=== PATIENT | male | born 1940 | race Caucasian/White ===

== ENCOUNTER 2016-04-24 13:23 | Inpatient (IN) | payer BC, MEDICARE ==
[~2016-04-24] VITALS: Ht 177.8 cm; Wt 65.9 kg
[2016-04-24] VITALS (8 sets, daily range): BP systolic 101–115; BP diastolic 58–71; PULSE 96–130; RESP 18–20; TEMP 97.2–99.6; O2SAT 92–95
[~2016-04-24 13:23] MED LIST: ASPI1TAB69 PO; ATOR20TA15 PO; CARV3.12 PO; FERR325T PO; LEFL1TAB3 PO; LISI2.5T3 PO; PRED5TAB PO; SULF500T39 PO; TOPI1TAB97 PO; WARF-20 PO; WARF-23 PO
[2016-04-24] MEDS ORDERED: SODIUM CHLOR 0.9% 1000 ML INJ 1,000 ML IV ONE (14:15)
[2016-04-24 14:28] LABS: AUTOMATED NEUTROPHIL # 10.5 TH/MM3 (1.8-7.7); BASOPHIL % 0.2 % (0.0-2.0); EOSINOPHIL % 0.1 % (0.0-4.0); LYMPH % 3.4 % (9.0-44.0); LYMPHOCYTE # 0.4 TH/MM3 (1.0-4.8); MEAN CORPUSCULAR HEMOGLOBIN 33.2 PG (27.0-34.0); MEAN CORPUSCULAR HGB CONC 33.9 % (32.0-36.0); MONO % 8.1 % (0.0-8.0); NEUT % 88.2 % (16.0-70.0); PLATELET COUNT 488 TH/MM3 (150-450); RED BLOOD COUNT 2.76 MIL/MM3 (4.50-5.90); RED CELL DISTRIBUTION WIDTH 14.2 % (11.6-17.2); WHITE BLOOD COUNT 11.9 TH/MM3 (4.0-11.0)
[2016-04-24 14:29] LABS: HEMO FLAGS DIFF FINAL
[2016-04-24 14:36] LABS: CHLORIDE 101 MEQ/L (98-107); POTASSIUM 3.1 MEQ/L (3.5-5.1); SODIUM (NA) 135 MEQ/L (136-145)
--- NOTE | 2016-04-24 14:36 | RADHPO ---
EXAM DATE/TIME: 04/24/2016 14:20 [place] COMPARISON: No previous studies available for comparison. INDICATIONS : Fever, cough,short of breath MEDICAL HISTORY : Chronic obstructive pulmonary disease. SURGICAL HISTORY : None. ENCOUNTER: Initial ACUITY: 1 week PAIN SCORE: 0/10 LOCATION: Bilateral chest FINDINGS: There is a patchy infiltrate in the right costophrenic angle suggestive of pneumonia. There is coarse jennie of the lung markings bilaterally suggestive of bilateral chronic interstitial lung disease. Ther e are no prior studies for comparison. No definite pleural effusions are seen. The heart size is with in normal limits. There is pleural thickening in both apices. The bony structures are grossly intact. CONCLUSION: 1. Patchy infiltrate in the right costophrenic angle suggestive of pneumonia. 2. Increased interstitial markings bilaterally suggestive of chronic interstitial disease. Mario Alberto Stanley MD on April 24, 2016 at 14:33 Board Certified Radiologist. This report was verified electronically.
--- NOTE | 2016-04-24 14:37 | PD ---
HPI Chief Complaint: General Weakness Time Seen by Provider: 13:53 Travel History International Travel<30 days: No Contact w/Intl Traveler<30days: No Traveled to known affect area: No History of Present Illness HPI 75-year-old male with history of COPD, CAD, CVA on Coumadin here with complaint of generalized weakness. Patient states that for the last month he has been ill. Describes flulike symptoms with cough, cold, chest congestion. Intractable diarrhea, states stools have been loose, 3-4 times daily. His stools are chronically black in color since starting on iron supplementation in September 2015. He has not seen any blood per stool and denies history of GI bleeding. Patient notes history of anemia, which is why he is on iron supplementation, baseline hemoglobin approximately 11 per patient. Patient has been getting progressively work with increasing malaise, anorexia, and resultant fall today due to weakness. No focal weakness. He denies any abdominal pain, nausea or vomiting. 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) Endocrine: No GERD: No Genitourinary: Yes (BPH) Hepatitis: No Hiatal Hernia: No Hypertension: Yes Immune Disorder: Yes (RA) Kidney Stones: No Musculoskeletal: No Neurologic: Yes (TIA 07/29/15) Psychiatric: No Reproductive: No Respiratory: Yes (ASTHMA, COPD) Immunizations Current: Yes Myocardial Infarction: Yes (x2 in 2008) Radiation Therapy: No Renal Failure: No Sickle Cell Disease: No Sleep Apnea: No Thyroid Disease: No Ulcer: No Influenza Vaccination: Yes Past Surgical History Abdominal Surgery: No AICD: No Arteriovenous Shunt: No Cardiac Surgery: Yes (STENTS X4) Coronary Stent: Yes (x 4 in 2008) Ear Surgery: No Endocrine Surgery: No Eye Surgery: No Genitourinary Surgery: No Gynecologic Surgery: No Insulin Pump: No Joint Replacement: No Oral Surgery: No Pacemaker: No Thoracic Surgery: No Other Surgery: Yes (left knee arthroscopy) Social History Alcohol Use: Yes (TWO BEERS PER DAY) Tobacco Use: No (quit 22 yrs ago smoked 1 ppd for 32 yrs) Substance Use: No Allergies-Medications (Allergen,Severity, Reaction): Coded Allergies: Bee Sting (Verified Allergy, Severe, Swelling, 04/24/16) neck swelling and hives Blueberry (Verified Allergy, Severe, Swelling, 04/24/16) lips Reported Meds & Prescriptions Reported Meds & Active Scripts Active Warfarin 5 Mg Tab 5 Mg PO DAILY Carvedilol 3.125 Mg Tab 3.125 Mg PO BID Reported Warfarin 4 Mg Tab 4 Mg PO DAILY Topiramate 25 Mg Tab 25 Mg PO BID Sulfazine (Sulfasalazine) 500 Mg Tab 1,000 Mg PO BID Prednisone 5 Mg Tab 5 Mg PO DAILY Leflunomide 20 Mg Tab 20 Mg PO DAILY Ferrous Sulfate 325 Mg Tab 325 Mg PO DAILY Atorvastatin (Atorvastatin Calcium) 20 Mg Tab 20 Mg PO HS Aspirin 81 Mg Tabdr 81 Mg PO HS Review of Systems Except as stated in HPI: all other systems reviewed are Neg Physical Exam Narrative GENERAL: Chronically ill-appearing thin male in no acute distress SKIN: Warm and dry. Pale, pale conjunctiva HEAD: Atraumatic. Normocephalic. EYES: Pupils equal and round. No scleral icterus. No injection or drainage. ENT: No nasal bleeding or discharge. Mucous membranes pink and moist. NECK: Supple CARDIOVASCULAR: Tachycardic with heart rate in the 130s. No murmur appreciated. RESPIRATORY: No accessory muscle use. Clear to auscultation. Breath sounds equal bilaterally. GASTROINTESTINAL: Abdomen soft, non-tender, nondistended. RECTAL: Normal digital rectal examination. Hemoccult positive. MUSCULOSKELETAL: No obvious deformities. No clubbing. No cyanosis. No edema. NEUROLOGICAL: Awake and alert. Motor grossly within normal limits. Normal speech. PSYCHIATRIC: Appropriate mood and affect; insight and judgment normal. Data Data Last Documented VS Vital Signs Date Time Temp Pulse Resp B/P Pulse Ox O2 Delivery O2 Flow Rate FiO2 04/24/16 14:12 94 Room Air 04/24/16 14:06 120 18 112/65 04/24/16 13:31 99.6 Orders Electrocardiogram (04/24/16 14:03) Complete Blood Count With Diff (04/24/16 14:03) Comprehensive Metabolic Panel (04/24/16 14:03) Prothrombin Time / Inr (Pt) (04/24/16 14:03) Act Partial Throm Time (Ptt) (04/24/16 14:03) Lactic Acid Sepsis Protocol (04/24/16 14:03) Magnesium (Mg) (04/24/16 14:03) Lipase (04/24/16 14:03) Troponin I (04/24/16 14:03) Urinalysis - C+S If Indicated (04/24/16 14:03) Influenzae A/B Antigen (04/24/16 14:03) Blood Culture (04/24/16 14:03) Chest, Single Ap (04/24/16 14:03) Ecg Monitoring (04/24/16 14:03) Iv Access Insert/Monitor (04/24/16 14:03) Oximetry (04/24/16 14:03) Sodium Chlor 0.9% 1000 Ml Inj (Ns 1000 M (04/24/16 14:15) Ammonia (04/24/16 14:03) Type And Screen (04/24/16 14:03) Stool Ova And Parasite Screen (04/24/16 14:37) Enteric Path (Stool) (04/24/16 14:37) C Diff Toxin Pcr (04/24/16 14:37) Piperacil-Tazo 4.5 Gm Premix (Zosyn 4.5 (04/24/16 14:38) Phytonadione Inj (Vitamin K Inj) (04/24/16 15:15) Potassium Chloride (Kcl) (04/24/16 15:45) Admit Order (Ed Use Only) (04/24/16 15:46) Labs Laboratory Tests Test 04/24/16 14:15 White Blood Count 11.9 TH/MM3 Red Blood Count 2.76 MIL/MM3 Hemoglobin 9.1 GM/DL Hematocrit 27.0 % Mean Corpuscular Volume 98.0 FL Mean Corpuscular Hemoglobin 33.2 PG Mean Corpuscular Hemoglobin 33.9 % Concent Red Cell Distribution Width 14.2 % Platelet Count 488 TH/MM3 Mean Platelet Volume 6.6 FL Neutrophils (%) (Auto) 88.2 % Lymphocytes (%) (Auto) 3.4 % Monocytes (%) (Auto) 8.1 % Eosinophils (%) (Auto) 0.1 % Basophils (%) (Auto) 0.2 % Neutrophils # (Auto) 10.5 TH/MM3 Lymphocytes # (Auto) 0.4 TH/MM3 Monocytes # (Auto) 1.0 TH/MM3 Eosinophils # (Auto) 0.0 TH/MM3 Basophils # (Auto) 0.0 TH/MM3 CBC Comment DIFF FINAL Differential Comment Prothrombin Time 104.4 SEC Prothromb Time International 8.6 RATIO Ratio Activated Partial 77.3 SEC Thromboplast Time Sodium Level 135 MEQ/L Potassium Level 3.1 MEQ/L Chloride Level 101 MEQ/L Carbon Dioxide Level 21.4 MEQ/L Anion Gap 13 MEQ/L Blood Urea Nitrogen 13 MG/DL Creatinine 0.86 MG/DL Estimat Glomerular Filtration 87 ML/MIN Rate Random Glucose 150 MG/DL Lactic Acid Level 2.3 mmol/L Calcium Level 8.5 MG/DL Magnesium Level 1.9 MG/DL Total Bilirubin 0.4 MG/DL Aspartate Amino Transf 18 U/L (AST/SGOT) Alanine Aminotransferase 12 U/L (ALT/SGPT) Alkaline Phosphatase 89 U/L Ammonia LESS THAN 10 MCMOL/L Troponin I LESS THAN 0.02 NG/ML Total Protein 7.3 GM/DL Albumin 1.9 GM/DL Lipase 123 U/L [facility] Medical Decision Making Medical Screen Exam Complete: Yes Emergency Medical Condition: Yes Medical Record Reviewed: Yes Differential Diagnosis 75-year-old male with history of COPD, CAD, CVA on Coumadin here with complaint of generalized weakness 1 month, cough, fevers chills, diarrhea. Differential includes viral syndrome, influenza, COPD exacerbation, pneumonia, symptomatic anemia, GI bleed, electrolyte abnormality, renal dysfunction, C. difficile or other enteric pathogenic diarrhea, ACS, new onset failure. Narrative Course Patient placed on monitor, IV established and blood obtained. Given 1 L normal saline bolus. Twelve-lead EKG shows sinus tachycardia, rate [address] abnormalities, normal intervals. Portal chest x-ray obtained showing right basilar pneumonia. Patient treated with Zosyn IV. CBC, CMP, lipase, magnesium, troponin, coags, lactic acid, ammonia, type and screen, urinalysis, blood cultures, influenza obtained and notable for WBC 11.9, hemoglobin 9.1, platelets 488. INR supratherapeutic at 8.6. Patient given 10 mg vitamin K IV. Potassium slightly low at 3.1. Replaced with 40 mEq orally. Lactate elevated at 2.3. Stool studies for ova and parasites, enteric pathogens and C. difficile ordered as well. Results remain pending at the time this dictation. Patient has infectious source but at this time only meets 1 Sirs criteria with heart rate. Critical Care Narrative Aggregate critical care time was 35 minutes. Time to perform other separately billable procedures was not included in the critical care time. My time did not include minutes spent treating any other patients simultaneously or on activities that did not directly contribute to the patient's treatment. The services I provided to this patient were to treat and/or prevent clinically significant deterioration that could result in: Cardiopulmonary decompensation, hemorrhage, , disability I provided critical care services requiring my management, as noted below: Chart data review, documentation time, medication orders and management, vital sign assessments/reviewing monitor data, ordering and reviewing lab tests, ordering and interpreting/reviewing x-rays and diagnostic studies, care of the patient and discussion of the patient with the admitting physicians. HemaPrompt Point of Care Internal Pos. & Neg. Controls: Passed Fecal Specimen Occult Blood: Positive Sepsis Criteria SIRS Criteria (2 or more): Heart rate over 90 Sepsis Criteria (SIRS+source): Infect source susp/known Severe Sepsis (+one): Lactate >2 Diagnosis Primary Impression: Pneumonia Qualified Code: J18.1 - Pneumonia of right lower lobe due to infectious organism Additional Impressions: Tachycardia Coumadin toxicity Qualified Code: T45.511A - Coumadin toxicity, accidental or unintentional, initial encounter Anemia Qualified Code: D64.9 - Anemia, unspecified type Hypokalemia Lactic acidosis Admitting Information Admitting Physician Requests: Admit Enedelia Navarro MD Apr 24, 2016 14:37
[2016-04-24] MEDS ORDERED: PIPERACIL-TAZO 4.5 GM PREMIX 100 ML IV STA (14:38)
[2016-04-24 14:40] LABS: ANION GAP 13 MEQ/L (5-15); BICARBONATE 21.4 MEQ/L (21.0-32.0); BLOOD UREA NITROGEN 13 MG/DL (7-18); MAGNESIUM 1.9 MG/DL (1.5-2.5)
[2016-04-24 14:43] LABS: ALT (GPT) 12 U/L (12-78); AST (GOT) 18 U/L (15-37); GLOMERULAR FILTRATION RATE 87 ML/MIN (>89)
[2016-04-24 14:45] LABS: TOTAL BILIRUBIN ADULT 0.4 MG/DL (0.2-1.0)
[2016-04-24 14:46] LABS: ALKALINE PHOSPHATASE 89 U/L (45-117)
[2016-04-24 14:57] LABS: APTT (PATIENT) 77.3 SEC (24.3-30.1); PROTHROMBIN TIME - PATIENT 104.4 SEC (9.8-11.6)
[2016-04-24 15:01] LABS: INTERNATIONAL NORMALIZED RATIO 8.6 RATIO
[2016-04-24] MEDS ORDERED: PHYTONADIONE INJ 10 MG in SODIUM CHLORIDE 0.9% INJ 50 ML IV ONE (15:15)
[2016-04-24] MEDS ORDERED: POTASSIUM CHLORIDE 20 MEQ CONTROLLED RELEASE TAB PO ONE (15:45)
[2016-04-24] MEDS ORDERED: SODIUM CHLORIDE 0.9% FLUSH 5 ML FLUSH FLUSH PRN (16:15)
[2016-04-24 16:21] LABS: LACTIC ACID GHOST NOT REPORTABLE
[2016-04-24] MEDS ORDERED: ONDANSETRON HCL 4 MG/2 ML VIAL IV PRN (17:00)
[2016-04-24] MEDS ORDERED: guaiFENesin/DEXTROMETHORPHAN 200 MG/20 MG/10 ML CUP PO PRN (17:00)
[2016-04-24] MEDS ORDERED: RESP: ALBUTEROL 2.5 MG/IPRATROPIUM 0.5 MG NEB (PRN) INH (17:00)
[2016-04-24] MEDS ORDERED: ACETAMINOPHEN 325 MG TAB PO PRN (17:00)
[2016-04-24] MEDS ORDERED: SODIUM CHLORIDE 0.9% FLUSH 5 ML FLUSH IV FLUSH PRN (17:00)
[2016-04-24] MEDS: AZITHROMYCIN INJ 500 MG in SODIUM CHLOR 0.9% 250 ML INJ 250 ML IV SCH (17:32)
[2016-04-24] MEDS: SODIUM CHLOR 0.9% 1000 ML INJ 1,000 ML IV SCH (17:45)
--- NOTE | 2016-04-24 17:52 | HHI.HP ---
cc: Alma Rosa Naik MD [facility]ician Alma Rosa Naik MD Admission Diagnosis right basilar pneumonia, supratherapeutic INR Diagnoses: (1) Pneumonia Diagnosis: Principal (2) Lactic acidosis Diagnosis: Principal (3) Diarrhea Diagnosis: Principal (4) Generalized weakness Diagnosis: Principal (5) Coumadin toxicity Diagnosis: Principal (6) Hypokalemia Diagnosis: Principal (7) Anemia Diagnosis: Secondary Chief Complaint: weakness, cough, diarrhea Travel History International Travel<30 Days: No Contact w/Intl Traveler <30 Da: No Traveled to Known Affected Are: No History of Present Illness 75-year-old male with history of CVA on Coumadin, CAD, RA, COPD and asthma, and chronic headaches presents with complaint of generalized weakness and fall. The patient states that he had diarrhea and was taking off his pants in the bathroom and slipped and the diarrhea. He states he was so weak he could not get up. He denies any head injury. He states a couple days after he went to a dinner alliance party and one of his friends was sick with respiratory symptoms and he states he had a runny nose, congestion, and cough for one month. He had states one week ago Monday he went to the friend's house again and she was ill and he again became sick with a runny nose, congestion, and productive cough. Admits to shortness of breath but denies any chest pain including pleuritic pain. Denies any fevers or chills. He states he sometimes produces yellow sputum but it is mostly clear. He admits to anorexia. Admits to chronic loose stools since July of last year after he started Coumadin, but he states for the last couple days he has had actual diarrhea, 3-4 episodes per day. Patient's INR was noted to be supratherapeutic, but he denies any hemoptysis, hematuria, or hematochezia. He has chronically dark stools due to iron use. Denies any n/v, or abdominal pain. Review of Systems Constitutional: DENIES: Fever, Chills Eyes: DENIES: Blurred vision Ears, nose, mouth, throat: COMPLAINS OF: Running Nose, DENIES: Throat pain, Ear Pain Respiratory: COMPLAINS OF: Cough, Shortness of breath Cardiovascular: DENIES: Chest pain Gastrointestinal: COMPLAINS OF: Black stools (from iron use, chronic), Diarrhea , Anorexia, DENIES: Abdominal pain, Bloody stools, Nausea, Vomiting Genitourinary: DENIES: Urinary frequency, Hematuria, Dysuria Integumentary: DENIES: Rash Neurologic: DENIES: Headache Other + Generalized weakness ROS x 10 negative unless otherwise indicated. Past Family Social History Past Medical History NC 2008 The patient states he had a couple of TIAs during cardiac rehabilitation between months of stenting. CVA 07/29/15 Admitted for Vtach in 09/2015. BPH RA Chronic anemia and thrombocytosis COPD, asthma Chronic HAs Past Surgical History Coronary artery stenting 2008: 2 stents placed in May and 2 stents placed in September of that year. Left knee arthroscopy in 1992 Prostate resection 11/2015 Reported Medications Warfarin 5 Mg Tab 5 Mg PO M, W, F Warfarin 4 Mg Tab 4 Mg PO T, R, S, Sun Carvedilol 3.125 Mg Tab 3.125 Mg PO BID Topiramate 25 Mg Tab 25 Mg PO BID Sulfazine (Sulfasalazine) 500 Mg Tab 1,000 Mg PO BID Prednisone 5 Mg Tab 5 Mg PO DAILY Leflunomide 20 Mg Tab 20 Mg PO DAILY Ferrous Sulfate 325 Mg Tab 325 Mg PO DAILY Atorvastatin (Atorvastatin Calcium) 20 Mg Tab 20 Mg PO HS Aspirin 81 Mg Tabdr 81 Mg PO HS Allergies: Coded Allergies: Bee Sting (Verified Allergy, Severe, Swelling, 04/24/16) neck swelling and hives Blueberry (Verified Allergy, Severe, Swelling, 04/24/16) lips Family History Mother: of lung cancer Father: Quadruple bypass at age 65; had platelet antibodies and would have severe nosebleeds; of Leukemia. Two of his brothers had NC in their mid 50's. One of these brothers also had a stroke. Social History Quit smoking cigarettes 22 years ago. Smoked one pack per day prior to this for 32 years. Drinks 2 beers daily, but has not been drinking recently. Denies illicit drug use. Smoked marijuana when he was younger per EMR. Physical Exam Vital Signs Vital Signs Date Time Temp Pulse Resp B/P Pulse Ox O2 Delivery O2 Flow Rate FiO2 04/24/16 16:12 97 18 110/58 95 Room Air 04/24/16 14:12 94 Room Air 04/24/16 14:06 120 18 112/65 94 Room Air 04/24/16 14:06 16 95 Room Air 04/24/16 13:31 99.6 130 18 107/65 92 Physical Exam GENERAL: This is a thin well-developed patient, in no apparent distress. SKIN: Pale but no rashes, ecchymoses or lesions. Warm and dry. HEAD: Atraumatic. Normocephalic. EYES: No scleral icterus. No injection or drainage. ENT: Mildly hard of hearing. Throat without erythema, tonsillar hypertrophy or exudate. Uvula midline. Airway patent. Tongue mildly dry. NECK: Trachea midline. CARDIOVASCULAR: Tachycardic rate with regular rhythm. No murmurs, gallops, or rubs. RESPIRATORY: Clear to auscultation. Breath sounds equal bilaterally. No wheezes , rales, or rhonchi. GASTROINTESTINAL: Abdomen soft, non-tender, nondistended. MUSCULOSKELETAL: No lower extremity edema bilaterally. NEUROLOGICAL: Awake and alert. No obvious cranial nerve deficits. Motor grossly within normal limits. Five out of 5 muscle strength in bilateral arms and legs. Normal speech. Laboratory Laboratory Tests Test 04/24/16 14:15 White Blood Count 11.9 Red Blood Count 2.76 Hemoglobin 9.1 Hematocrit 27.0 Mean Corpuscular Volume 98.0 Mean Corpuscular Hemoglobin 33.2 Mean Corpuscular Hemoglobin 33.9 Concent Red Cell Distribution Width 14.2 Platelet Count 488 Mean Platelet Volume 6.6 Neutrophils (%) (Auto) 88.2 Lymphocytes (%) (Auto) 3.4 Monocytes (%) (Auto) 8.1 Eosinophils (%) (Auto) 0.1 Basophils (%) (Auto) 0.2 Neutrophils # (Auto) 10.5 Lymphocytes # (Auto) 0.4 Monocytes # (Auto) 1.0 Eosinophils # (Auto) 0.0 Basophils # (Auto) 0.0 CBC Comment DIFF FINAL Differential Comment Prothrombin Time 104.4 Prothromb Time International 8.6 Ratio Activated Partial 77.3 Thromboplast Time Sodium Level 135 Potassium Level 3.1 Chloride Level 101 Carbon Dioxide Level 21.4 Anion Gap 13 Blood Urea Nitrogen 13 Creatinine 0.86 Estimat Glomerular Filtration 87 Rate Random Glucose 150 Lactic Acid Level 2.3 Calcium Level 8.5 Magnesium Level 1.9 Total Bilirubin 0.4 Aspartate Amino Transf 18 (AST/SGOT) Alanine Aminotransferase 12 (ALT/SGPT) Alkaline Phosphatase 89 Ammonia LESS THAN 10 Troponin I LESS THAN 0.02 Total Protein 7.3 Albumin 1.9 Lipase 123 Blood Type O POSITIVE Date/Time Procedure Status Source Growth 04/24/16 14:15 Influenza Types A,B Antigen (JAJA) - Final Complete Nasal Washing NEGATIVE FOR FLU A AND B ANTIGEN.... 04/24/16 14:15 Aerobic Blood Culture Received Blood Peripheral Pending 04/24/16 14:15 Anaerobic Blood Culture Received Blood Peripheral Pending Result Diagram: 04/24/16 1415 04/24/16 1415 Imaging Last Impressions Chest X-Ray 04/24/16 1403 Signed Impressions: Service Date/Time: Sunday, April 24, 2016 14:20 - CONCLUSION: 1. Patchy infiltrate in the right costophrenic angle suggestive of pneumonia. 2. Increased interstitial markings bilaterally suggestive of chronic interstitial disease. Mario Alberto Stanley MD Assessment and Plan Assessment and Plan 75-year-old male with: Pneumonia: Chest x-ray personally interpreted with patchy infiltrate in the right costophrenic angle, blunting of the R CPA. Increased interstitial markings bilaterally suggestive of chronic interstitial disease. Influenza test negative. Mild leukocytosis of 11.9. Patient is tachycardiac in the 90s, 130 on arrival, and lactic acid elevated at 2.3-->0.9, but patient only has one SIRS criteria. Patient will be treated as a HCAP as he is on immunosuppressive medication for RA and is at risk for pseudomonas. -Zosyn 4.5 g every 6 hours and Azithromycin 500 mg IV q24h -Guaifenesin/dextromethorphan prn cough -Sputum culture -Legionella and pneumococcal urinary antigen tests -Duonebs as needed -Blood cultures pending Diarrhea: Patient has chronic loose stools, but states he has had diarrhea over the last couple of days. Tachycardic. -C.diff and stool studies ordered -IV NS @ 100 mL/hr Generalized weakness: Attributed to pneumonia and diarrhea. Had fall today. EKG personally interpreted with demand pacing, sinus tach 107, and nonspecific lateral ST-T changes. Troponin < 0.02. -PT eval and treat Supratherapeutic INR: INR 8.6. Patient on Coumadin for previous stroke. Patient does not report any bleeding. Hemoccult is positive, but is likely a false positive as patient has chronic dark stools from iron supplementation. -Patient received 10 mg IV vitamin K in ED -Hold Coumadin -Monitor INR daily Hypokalemia: Mild 3.1. Mg 1.9. -Patient received 40 mEq by mouth KCl in ED. -Monitor and replete as needed. Anemia: Hemoglobin 9.1. -Patient has chronic anemia. He was evaluated by hematology in July of last year indicating microcytic/mixed anemia associated with RA, RF positive, and also iron deficiency. -Continue iron -Hold aspirin for now -Monitor hemoglobin and transfuse if active bleeding or hemoglobin < 7.0. Chronic medical problems include RA, h/o CVA and TIAs, CAD, chronic HAs, and asthma/COPD: Continue home medications unless otherwise indicated below. -Hold aspirin and warfarin for now -Hold DMARDs. -Continue prednisone as patient is only on 5 mg daily and may assist with pneumonia treatment DVT prevention: TEDs/SCDs. Patient supratherapeutic on coumadin. Discussed Condition With patient, Dr. Wallace Physician Certification 2 Midnight Certification Type: Admission for Inpatient Services Order for Inpatient Services The services are ordered in accordance with Medicare regulations or non- Medicare payer requirements, as applicable. In the case of services not specified as inpatient-only, they are appropriately provided as inpatient services in accordance with the 2-midnight benchmark. Estimated LOS (days): 2 days is the estimated time the patient will need to remain in the hospital, assuming treatment plan goals are met and no additional complications. Post-Hospital Plan: Home Problem Qualifiers (1) Pneumonia: Qualified Code: J18.1 - Pneumonia of right lower lobe due to infectious organism (2) Coumadin toxicity: Qualified Code: T45.511A - Coumadin toxicity, accidental or unintentional, initial encounter Chelsea Duncan Apr 24, 2016 17:48
--- NOTE | 2016-04-24 17:56 | EKG ---
Date Performed: 04/24/2016 Time Performed: 14:25:08 PTAGE: 75 years EKG: Sinus tachycardia Possible anterior infarct - age undetermined Lateral ST-T changes are non specific Low QRS voltages in limb leads Abnormal ECG PREVIOUS TRACING : 10/12/2015 23.01 No significant change from previous tracing noted. DOCTOR: Jagdish Ren Interpretating Date/Time 04/24/2016 17:55:03
[2016-04-24] MEDS: SODIUM CHLORIDE 0.9% FLUSH 5 ML FLUSH FLUSH SCH (21:00)
[2016-04-24] MEDS ORDERED: SODIUM CHLORIDE 0.9% FLUSH 5 ML FLUSH IV FLUSH SCH (21:00)
[2016-04-24] MEDS: PIPERACIL-TAZO 4.5 GM PREMIX 100 ML IV SCH (22:03)
[2016-04-24] MEDS: TOPIRAMATE 25 MG TAB PO SCH (22:03)
[2016-04-24] MEDS: ATORVASTATIN 20 MG TAB PO SCH (22:03)
[2016-04-24] MEDS: CARVEDILOL 3.125 MG TAB PO SCH (22:03)
[2016-04-24 22:28] LABS: BLOOD, URINE SMALL (NEG); GLUCOSE,URINE NEG (NEG); KETONE, URINE NEG (NEG); NITRITE,URINE NEG (NEG)
[2016-04-24 22:42] LABS: METHOD OF COLLECTION CLEAN CATCH; URINE COLOR YELLOW (YELLW/STRAW)
[2016-04-24 22:44] LABS: SQUAMOUS EPITHELIAL CELL URINE 0-5 /hpf (0-5)
[2016-04-24 22:45] LABS: COMMENT (UR) CULT NOT INDICATED; CULTURE IF INDICATED CULT NOT INDICATED
[2016-04-25] VITALS (8 sets, daily range): BP systolic 105–127; BP diastolic 60–74; PULSE 18–112; RESP 16–18; TEMP 96.4–99.7; O2SAT 91–94
[2016-04-25] MEDS: PIPERACIL-TAZO 4.5 GM PREMIX 100 ML IV SCH ×4 (02:52→20:03)
[2016-04-25] MEDS: SODIUM CHLOR 0.9% 1000 ML INJ 1,000 ML IV SCH (02:52)
[2016-04-25 05:54] LABS: BASOPHIL % 0.3 % (0.0-2.0); EOSINOPHIL # 0.1 TH/MM3 (0-0.4); EOSINOPHIL % 1.3 % (0.0-4.0); LYMPHOCYTE # 0.9 TH/MM3 (1.0-4.8); MEAN CELL VOLUME 98.4 FL (80.0-100.0); MEAN CORPUSCULAR HEMOGLOBIN 31.6 PG (27.0-34.0); MEAN CORPUSCULAR HGB CONC 32.1 % (32.0-36.0); MONO % 10.2 % (0.0-8.0); NEUT % 79.2 % (16.0-70.0); PLATELET COUNT 477 TH/MM3 (150-450); RED BLOOD COUNT 2.44 MIL/MM3 (4.50-5.90); RED CELL DISTRIBUTION WIDTH 14.5 % (11.6-17.2)
[2016-04-25 06:01] LABS: HEMO FLAGS DIFF FINAL
[2016-04-25 06:15] LABS: POTASSIUM 3.2 MEQ/L (3.5-5.1)
[2016-04-25 06:18] LABS: INTERNATIONAL NORMALIZED RATIO 1.1 RATIO; PROTHROMBIN TIME - PATIENT 12.7 SEC (9.8-11.6)
[2016-04-25 06:19] LABS: BICARBONATE 21.4 MEQ/L (21.0-32.0)
[2016-04-25] MEDS ORDERED: POTASSIUM CHLORIDE 20 MEQ CONTROLLED RELEASE TAB PO ONE (07:15)
[2016-04-25] MEDS: NS + KCL 20 MEQ INJ 1,000 ML IV SCH ×2 (08:20→20:01)
[2016-04-25] MEDS: TOPIRAMATE 25 MG TAB PO SCH ×2 (08:20→20:04)
[2016-04-25] MEDS: predniSONE 5 MG TAB PO SCH (08:20)
[2016-04-25] MEDS: CARVEDILOL 3.125 MG TAB PO SCH ×2 (08:20→20:04)
[2016-04-25] MEDS: FERROUS SULFATE 325 MG (65 MG ELEMENTAL IRON) TAB PO SCH (08:20)
[2016-04-25] MEDS: SODIUM CHLORIDE 0.9% FLUSH 5 ML FLUSH FLUSH SCH ×2 (08:21→20:01)
--- NOTE | 2016-04-25 14:06 | HHI.PR ---
Subjective Remarks Seen today in follow-up for pneumonia and weakness. With no further lightheadedness or dizziness. INR is 8.6-1.1. No events on telemetry this morning however he had some episodes of wide-complex tachycardia which were asymptomatic to the patient. Patient had some hypokalemia which has been replaced. Hemoglobin initially was 7.7 and repeat was 8.5. Patient notes no bleeding however nursing reports black stool (patient on iron supplementation. Hemoccult positive and emergency room) Objective Vitals Vital Signs Date Time Temp Pulse Resp B/P Pulse Ox O2 Delivery O2 Flow Rate FiO2 04/25/16 09:03 99.3 18 16 127/72 91 04/25/16 08:10 92 21 04/25/16 04:00 96.7 105 18 125/74 91 04/25/16 00:00 96.4 94 18 105/66 94 04/24/16 20:30 94 21 04/24/16 20:00 97.2 97 18 101/65 94 04/24/16 20:00 97 04/24/16 17:35 92 21 04/24/16 17:00 98.2 96 20 115/71 92 04/24/16 16:12 97 18 110/58 95 Room Air 04/24/16 14:12 94 Room Air 04/24/16 14:06 120 18 112/65 94 Room Air 04/24/16 14:06 16 95 Room Air I/O 04/24/16 04/24/16 04/24/16 04/25/16 04/25/16 04/25/16 07:00 15:00 23:00 07:00 15:00 23:00 Intake Total 1820 ml 800 ml 1551 ml Output Total 350 ml Balance 1470 ml 800 ml 1551 ml Intake Oral 120 ml IV Total 1700 ml 800 ml 1551 ml Output Urine Total 350 ml Result Diagram: 04/25/16 1100 04/25/16 0503 Imaging Last Impressions Chest X-Ray 04/24/16 1403 Signed Impressions: Service Date/Time: Sunday, April 24, 2016 14:20 - CONCLUSION: 1. Patchy infiltrate in the right costophrenic angle suggestive of pneumonia. 2. Increased interstitial markings bilaterally suggestive of chronic interstitial disease. Mario Alberto Stanley MD Objective Remarks GENERAL: This is a well-nourished, well-developed patient, in no apparent distress. CARDIOVASCULAR: Regular rate and rhythm without murmurs, gallops, or rubs. RESPIRATORY: Clear to auscultation. Breath sounds equal bilaterally. No wheezes , rales, or rhonchi. GASTROINTESTINAL: Abdomen soft, non-tender, nondistended. Normal active bowel sounds MUSCULOSKELETAL: Extremities without clubbing, cyanosis, or edema. NEURO: Alert & Oriented x4 to person, place, time, situation. Moves all ext x4 A/P Problem List: (1) Pneumonia ICD Code: J18.9 Status: Acute Plan: Continue Zosyn and azithromycin Improved respiratory status for patient Right sided pneumonia (2) Lactic acidosis ICD Code: E87.2 Status: Resolved Plan: Resolved (3) Diarrhea ICD Code: R19.7 Status: Acute Plan: Etiology unclear, C. difficile pending ?gi bleed (4) Coumadin toxicity ICD Code: T45.511A Status: Acute Plan: Resolved after 10 mg vitamin K. Patient has evidence of GI bleeding which we will evaluate prior to resuming Coumadin (5) Hypokalemia ICD Code: E87.6 Status: Acute Plan: Continue to replace and follow (6) Anemia ICD Code: D64.9 Status: Acute Plan: Patient with a history of iron deficiency anemia and has been on iron supplementation. We'll rule out GI bleed Assessment and Plan Patient to cont Follow up inpatient Problem Qualifiers (1) Pneumonia: Qualified Code: J18.1 - Pneumonia of right lower lobe due to infectious organism (2) Coumadin toxicity: Qualified Code: T45.511A - Coumadin toxicity, accidental or unintentional, initial encounter Ignacia Wallace MD Apr 25, 2016 14:06
[2016-04-25] MEDS: AZITHROMYCIN INJ 500 MG in SODIUM CHLOR 0.9% 250 ML INJ 250 ML IV SCH (16:25)
[2016-04-25] MEDS ORDERED: PEG (High)/E-LYTE SOLN 4000 ML BTL PO ONE (20:00)
[2016-04-25] MEDS: ATORVASTATIN 20 MG TAB PO SCH (20:04)
[2016-04-26] VITALS (10 sets, daily range): BP systolic 111–145; BP diastolic 60–84; PULSE 73–111; RESP 16–20; TEMP 97.6–98.3; O2SAT 92–99
[2016-04-26] MEDS: PIPERACIL-TAZO 4.5 GM PREMIX 100 ML IV SCH ×2 (03:12→09:16)
[2016-04-26] MEDS: NS + KCL 20 MEQ INJ 1,000 ML IV SCH (03:14)
[2016-04-26 05:23] LABS: C. DIFF EPI 027 PRESUMPTIVE NEGATIVE (NEGATIVE); C. DIFF TOXIN PCR NEGATIVE (NEGATIVE)
[2016-04-26 06:35] LABS: AUTOMATED NEUTROPHIL # 8.9 TH/MM3 (1.8-7.7); BASOPHIL % 0.3 % (0.0-2.0); EOSINOPHIL # 0.2 TH/MM3 (0-0.4); EOSINOPHIL % 2.1 % (0.0-4.0); HEMATOCRIT 22.3 % (39.0-51.0); HEMO FLAGS DIFF FINAL; LYMPH % 8.5 % (9.0-44.0); MEAN CELL VOLUME 98.3 FL (80.0-100.0); MEAN CORPUSCULAR HEMOGLOBIN 31.8 PG (27.0-34.0); MEAN CORPUSCULAR HGB CONC 32.3 % (32.0-36.0); MONO % 10.9 % (0.0-8.0); NEUT % 78.2 % (16.0-70.0); PLATELET COUNT 513 TH/MM3 (150-450); RED BLOOD COUNT 2.27 MIL/MM3 (4.50-5.90); RED CELL DISTRIBUTION WIDTH 15.1 % (11.6-17.2); WHITE BLOOD COUNT 11.3 TH/MM3 (4.0-11.0)
[2016-04-26 06:40] LABS: POTASSIUM 3.2 MEQ/L (3.5-5.1)
[2016-04-26 06:43] LABS: BICARBONATE 20.4 MEQ/L (21.0-32.0)
[2016-04-26] MEDS ORDERED: PROPOFOL 200 MG/20 ML AMP IV ONE (07:42)
[2016-04-26] MEDS: TOPIRAMATE 25 MG TAB PO SCH ×2 (09:16→20:49)
[2016-04-26] MEDS: CARVEDILOL 3.125 MG TAB PO SCH ×2 (09:16→20:49)
[2016-04-26] MEDS: predniSONE 5 MG TAB PO SCH (09:16)
[2016-04-26] MEDS: FERROUS SULFATE 325 MG (65 MG ELEMENTAL IRON) TAB PO SCH (09:17)
[2016-04-26] MEDS: SODIUM CHLORIDE 0.9% FLUSH 5 ML FLUSH FLUSH SCH ×2 (09:17→20:49)
--- NOTE | 2016-04-26 14:44 | HHI.PR ---
Subjective Remarks Patient seen today in follow-up for pneumonia and GI bleeding. Endoscopy results noted and discussed with patient and family. Patient sees improvement in his functional status as well as respiratory status. No new complaints today. Objective Vitals Vital Signs Date Time Temp Pulse Resp B/P Pulse Ox O2 Delivery O2 Flow Rate FiO2 04/26/16 13:14 98.2 73 18 145/60 98 04/26/16 08:30 94 16 144/70 95 04/26/16 08:20 91 16 139/68 95 04/26/16 08:10 98.5 96 15 131/67 95 04/26/16 00:25 94 21 04/26/16 00:00 98.1 111 20 142/84 95 04/25/16 20:00 97.8 112 17 115/60 94 04/25/16 17:41 98.4 104 18 105/68 93 I/O 04/25/16 04/25/16 04/25/16 04/26/16 04/26/16 04/26/16 07:00 15:00 23:00 07:00 15:00 23:00 Intake Total 800 ml 1551 ml 2652 ml 894 ml 500 ml Output Total 1200 ml Balance 800 ml 1551 ml 1452 ml 894 ml 500 ml Intake Oral 1140 ml IV Total 800 ml 1551 ml 1512 ml 894 ml Other 500 ml Output Urine Total 1200 ml # Voids 2 3 # Bowel Movements 3 5 Result Diagram: 04/26/16 0515 04/26/16 0515 Imaging Last Impressions Chest X-Ray 04/24/16 1403 Signed Impressions: Service Date/Time: Sunday, April 24, 2016 14:20 - CONCLUSION: 1. Patchy infiltrate in the right costophrenic angle suggestive of pneumonia. 2. Increased interstitial markings bilaterally suggestive of chronic interstitial disease. Mario Alberto Stanley MD Objective Remarks GENERAL: This is a well-nourished, well-developed patient, in no apparent distress. CARDIOVASCULAR: Regular rate and rhythm without murmurs, gallops, or rubs. RESPIRATORY: Clear to auscultation. Breath sounds equal bilaterally. No wheezes , rales, or rhonchi. GASTROINTESTINAL: Abdomen soft, non-tender, nondistended. Normal active bowel sounds MUSCULOSKELETAL: Extremities without clubbing, cyanosis, or edema. NEURO: Alert & Oriented x4 to person, place, time, situation. Moves all ext x4 A/P Problem List: (1) Pneumonia ICD Code: J18.9 Status: Acute Plan: Continue Zosyn and azithromycin Improved respiratory status for patient Right sided pneumonia (2) Lactic acidosis ICD Code: E87.2 Status: Resolved Plan: Resolved (3) Diarrhea ICD Code: R19.7 Status: Acute Plan: Etiology unclear, C. difficile pending Was post endoscopy with findings of gastritis and Rangel's esophagitis Recommended PPI, avoid NSAIDs and resume anticoagulation with outpatient follow- up by GI (4) Coumadin toxicity ICD Code: T45.511A Status: Acute Plan: Resolved after 10 mg vitamin K. Patient has evidence of GI bleeding which we will evaluate prior to resuming Coumadin (5) Hypokalemia ICD Code: E87.6 Status: Acute Plan: Continue to replace and follow (6) Anemia ICD Code: D64.9 Status: Acute Plan: Patient with a history of iron deficiency anemia and has been on iron supplementation transfuse 1 unit prbc's recheck in am d/c if stable Assessment and Plan Patient to cont Follow up inpatient Problem Qualifiers (1) Pneumonia: Qualified Code: J18.1 - Pneumonia of right lower lobe due to infectious organism (2) Coumadin toxicity: Qualified Code: T45.511A - Coumadin toxicity, accidental or unintentional, initial encounter Ignacia Wallace MD Apr 26, 2016 14:44
[2016-04-26] MEDS ORDERED: SODIUM CHLOR 0.9% 250 ML INJ 250 ML IV ONE ×2 (14:45)
[2016-04-26] MEDS ORDERED: FUROSEMIDE 20 MG/2 ML VIAL IV ONE (14:45)
[2016-04-26] MEDS ORDERED: WARFARIN SOD 4 MG TAB PO SCH (16:00)
[2016-04-26] MEDS: ATORVASTATIN 20 MG TAB PO SCH (20:49)
[2016-04-27] VITALS: BP 108/60; PULSE 99; RESP 16; TEMP 97.9; O2SAT 93
[2016-04-27 06:40] LABS: INTERNATIONAL NORMALIZED RATIO 1.2 RATIO; PROTHROMBIN TIME - PATIENT 13.7 SEC (9.8-11.6)
[2016-04-27 08:00] VITALS: O2SAT 95
[2016-04-27 08:44] VITALS: BP 133/84; PULSE 103; RESP 15; TEMP 98; O2SAT 93
[2016-04-27] MEDS: TOPIRAMATE 25 MG TAB PO SCH (08:45)
[2016-04-27] MEDS: CARVEDILOL 3.125 MG TAB PO SCH (08:45)
[2016-04-27] MEDS: FERROUS SULFATE 325 MG (65 MG ELEMENTAL IRON) TAB PO SCH (08:45)
[2016-04-27] MEDS: predniSONE 5 MG TAB PO SCH (08:45)
[2016-04-27] MEDS: SODIUM CHLORIDE 0.9% FLUSH 5 ML FLUSH FLUSH SCH (08:45)
[2016-04-27] MEDS ORDERED: LEVOFLOXACIN 750 MG TAB PO SCH (09:00)
[2016-04-27 12:07] VITALS: BP 124/68; PULSE 99; RESP 17; TEMP 97.2; O2SAT 95
[2016-04-27 14:16] LABS: HEMATOCRIT 26.9 % (39.0-51.0); REVIEW FLAG FINAL
[2016-04-27] MEDS ORDERED: LEVA750T PO (14:41)
[2016-04-27] MEDS ORDERED: POTASSIUM CHLORIDE 10 MEQ CONTROLLED RELEASE TAB PO ONE (14:45)
[2016-04-27] MEDS ORDERED: PROT40TA PO (15:18)
--- NOTE | 2016-04-27 15:18 | HHI.DS ---
Discharge Summary Admission Date Apr 24, 2016 at 15:48 Discharge Date: Apr 27, 2016 Admitting Diagnosis right basilar pneumonia, supratherapeutic INR (1) Pneumonia ICD Code: J18.9 (2) Lactic acidosis ICD Code: E87.2 (3) Diarrhea ICD Code: R19.7 (4) Coumadin toxicity ICD Code: T45.511A (5) Hypokalemia ICD Code: E87.6 (6) Anemia ICD Code: D64.9 (7) Gastritis ICD Code: K29.70 (8) Esophagitis ICD Code: K20.9 Procedures EGD Colonoscopy Brief History - From Admission 75-year-old male with history of CVA on Coumadin, CAD, RA, COPD and asthma, and chronic headaches presents with complaint of generalized weakness and fall. The patient states that he had diarrhea and was taking off his pants in the bathroom and slipped and the diarrhea. He states he was so weak he could not get up. He denies any head injury. He states a couple days after he went to a dinner republican and one of his friends was sick with respiratory symptoms and he states he had a runny nose, congestion, and cough for one month. He had states one week ago Monday he went to the friend's house again and she was ill and he again became sick with a runny nose, congestion, and productive cough. Admits to shortness of breath but denies any chest pain including pleuritic pain. Denies any fevers or chills. He states he sometimes produces yellow sputum but it is mostly clear. He admits to anorexia. Admits to chronic loose stools since July of last year after he started Coumadin, but he states for the last couple days he has had actual diarrhea, 3-4 episodes per day. Patient's INR was noted to be supratherapeutic, but he denies any hemoptysis, hematuria, or hematochezia. He has chronically dark stools due to iron use. Denies any n/v, or abdominal pain. CBC/BMP: 04/27/16 1400 04/26/16 0515 Significant Findings Laboratory Tests Test 04/24/16 04/25/16 04/25/16 04/26/16 22:20 05:03 11:00 05:15 Urine Occult Blood SMALL (NEG) Urine RBC 4-9 /hpf (0-3) Red Blood Count 2.44 MIL/MM3 2.27 MIL/MM3 (4.50-5.90) (4.50-5.90) Hemoglobin 7.7 GM/DL 8.5 GM/DL 7.2 GM/DL (13.0-17.0) (13.0-17.0) (13.0-17.0) Hematocrit 24.0 % 22.3 % (39.0-51.0) (39.0-51.0) Platelet Count 477 TH/MM3 513 TH/MM3 (150-450) (150-450) Neutrophils (%) (Auto) 79.2 % 78.2 % (16.0-70.0) (16.0-70.0) Monocytes (%) (Auto) 10.2 % 10.9 % (0.0-8.0) (0.0-8.0) Neutrophils # (Auto) 8.0 TH/MM3 8.9 TH/MM3 (1.8-7.7) (1.8-7.7) Lymphocytes # (Auto) 0.9 TH/MM3 (1.0-4.8) Monocytes # (Auto) 1.0 TH/MM3 1.2 TH/MM3 (0-0.9) (0-0.9) Prothrombin Time 12.7 SEC (9.8-11.6) Potassium Level 3.2 MEQ/L 3.2 MEQ/L (3.5-5.1) (3.5-5.1) Chloride Level 108 MEQ/L 112 MEQ/L (98-107) (98-107) Creatinine 0.52 MG/DL 0.52 MG/DL (0.60-1.30) (0.60-1.30) Calcium Level 7.9 MG/DL 8.0 MG/DL (8.5-10.1) (8.5-10.1) White Blood Count 11.3 TH/MM3 (4.0-11.0) Lymphocytes (%) (Auto) 8.5 % (9.0-44.0) Carbon Dioxide Level 20.4 MEQ/L (21.0-32.0) Test 04/27/16 04/27/16 05:47 14:00 Prothrombin Time 13.7 SEC (9.8-11.6) Hemoglobin 9.0 GM/DL (13.0-17.0) Hematocrit 26.9 % (39.0-51.0) Imaging Last Impressions Chest X-Ray 04/24/16 1403 Signed Impressions: Service Date/Time: Sunday, April 24, 2016 14:20 - CONCLUSION: 1. Patchy infiltrate in the right costophrenic angle suggestive of pneumonia. 2. Increased interstitial markings bilaterally suggestive of chronic interstitial disease. Mario Alberto Stanley MD PE at Discharge GENERAL: This is a well-nourished, well-developed patient, in no apparent distress. CARDIOVASCULAR: Regular rate and rhythm without murmurs, gallops, or rubs. RESPIRATORY: Clear to auscultation. Breath sounds equal bilaterally. No wheezes , rales, or rhonchi. GASTROINTESTINAL: Abdomen soft, non-tender, nondistended. Normal active bowel sounds MUSCULOSKELETAL: Extremities without clubbing, cyanosis, or edema. NEURO: Alert & Oriented x4 to person, place, time, situation. Moves all ext x4 Hospital Course The patient was admitted and treated for community-acquired pneumonia with Levaquin. Coumadin toxicity was reversed. He was transfused 2 units packed red blood cells. He did undergo EGD and colonoscopy showing gastritis, esophagitis, diverticulosis, and a sigmoid polyp which was removed. It was felt that the source of the GI bleeding was from the gastritis and esophagitis from the supratherapeutic INR. Prescription has been provided for Protonix and Levaquin. He has remained stable on room air and is ambulating well with walker. The patient was instructed he needs closer PT INR monitoring with his PCP especially as Levaquin can interact with the Coumadin. He agrees to have his PT checked with his PCP before the weekend. Pt Condition on Discharge: Stable Discharge Disposition: Discharge Home Discharge Time: > 30 minutes Discharge Instructions DIET: Follow Instructions for: Heart Healthy Diet Activities you can perform: Regular-No Restrictions Follow up Referrals: PCP Follow-up - 2-3 Days with Alma Rosa Naik MD New Medications: Pantoprazole (Protonix) 40 Mg Tab 40 MG PO DAILY Reflux #30 Ref 0 TAB Levofloxacin (Levaquin) 750 Mg Tab 750 MG PO DAILY Infection #5 TAB Continued Medications: Aspirin (Aspirin) 81 Mg Tabdr 81 MG PO HS TAB Atorvastatin (Atorvastatin) 20 Mg Tab 20 MG PO HS Cholesterol Management #30 Ref 0 TAB Carvedilol (Carvedilol) 3.125 Mg Tab 3.125 MG PO BID #180 Ref 1 TAB Ferrous Sulfate (Ferrous Sulfate) 325 Mg Tab 325 MG PO DAILY Nutritional Supplement #30 Ref 0 TAB Leflunomide (Leflunomide) 20 Mg Tab 20 MG PO DAILY TAB Prednisone (Prednisone) 5 Mg Tab 5 MG PO DAILY Ref 0 TAB Sulfasalazine (Sulfazine) 500 Mg Tab 1000 MG PO BID #120 Ref 0 TAB Topiramate (Topiramate) 25 Mg Tab 25 MG PO BID Control Seizures #60 Ref 0 TAB Warfarin (Warfarin) 4 Mg Tab 4 MG PO DAILY Blood Clot Prevention #90 Ref 0 TAB Discontinued Medications: Warfarin (Warfarin) 5 Mg Tab 5 MG PO DAILY Blood Clot Prevention #30 Ref 0 TAB Dulce Rocha MD Apr 27, 2016 15:18
[2016-04-28] MEDS ORDERED: ADVA500A INH (10:07)
[2016-05-04] MEDS ORDERED: LEVA500T PO (12:02)
[2016-05-05] MEDS ORDERED: ADVA500A INH (14:13)
[2016-06-10] MEDS ORDERED: WARF-23 PO (13:43)
[2016-07-01] MEDS ORDERED: COUM1TAB PO (11:29)
[2016-07-01] MEDS ORDERED: WARF-60 PO (11:29)
[2016-07-29] MEDS ORDERED: PROT40TA PO (11:43)
[2016-08-02] MEDS ORDERED: WARF-60 PO (11:07)
[2016-08-09] MEDS ORDERED: COUM1TAB PO (12:41)
[2016-09-02] MEDS ORDERED: WARF-60 PO (11:15)
[2016-09-02] MEDS ORDERED: CARV3.12 PO (11:16)
[2016-09-02] MEDS ORDERED: ADVA500A INH (11:16)
== END 2016-04-27 16:24 | disposition home or self-care (01) | DRG 190 ==
LOC: PHED 13:23 → PHEDA 15:48 → PH3B 16:44
PROVIDERS: ADMIT Family Medicine; ATTEND Family Medicine
PROC: 0DB68ZX Excision of Stomach, Via Natural or Artificial Opening Endoscopic, Diagnostic (ICD-10-PCS; 2016-04-26)
PROC: 30233N1 Transfusion of Nonautologous Red Blood Cells into Peripheral Vein, Percutaneous Approach (ICD-10-PCS; 2016-04-26)
PROC: 0D5N8ZZ Destruction of Sigmoid Colon, Via Natural or Artificial Opening Endoscopic (ICD-10-PCS; principal; 2016-04-26 07:30)
PROC: 0DB58ZX Excision of Esophagus, Via Natural or Artificial Opening Endoscopic, Diagnostic (ICD-10-PCS; 2016-04-26 07:30)
DX: J44.0 Chronic obstructive pulmonary disease with (acute) lower respiratory infection (principal); J18.9 Pneumonia, unspecified organism; E87.2 Acidosis; M06.9 Rheumatoid arthritis, unspecified; D64.9 Anemia, unspecified; J45.909 Unspecified asthma, uncomplicated; Z79.52 Long term (current) use of systemic steroids; R79.1 Abnormal coagulation profile; Z79.01 Long term (current) use of anticoagulants; T45.511A Poisoning by anticoagulants, accidental (unintentional), initial encounter; R19.5 Other fecal abnormalities; R19.7 Diarrhea, unspecified; R53.1 Weakness; Z91.81 History of falling; Z86.73 Personal history of transient ischemic attack (TIA), and cerebral infarction without residual deficits; E87.6 Hypokalemia; I25.10 Atherosclerotic heart disease of native coronary artery without angina pectoris; Z95.5 Presence of coronary angioplasty implant and graft; I25.2 Old myocardial infarction; R51 Headache; K29.70 Gastritis, unspecified, without bleeding; K20.9 Esophagitis, unspecified; K57.30 Diverticulosis of large intestine without perforation or abscess without bleeding; D12.5 Benign neoplasm of sigmoid colon; K64.8 Other hemorrhoids; I10 Essential (primary) hypertension; H91.93 Unspecified hearing loss, bilateral; N40.0 Benign prostatic hyperplasia without lower urinary tract symptoms; Z87.891 Personal history of nicotine dependence
CPT/HCPCS: 36430; 71010; 80048; 80053; 81001; 82140; 82272; 83605; 83690; 83735; 84484; 85014; 85018; 85025; 85610; 85730; 86850; 86900; 86901; 86920; 87040; 87328; 87329; 87449; 87493; 87506; 87804; 88305; 88312; 93005; 96361; 96365; 96375; J0456; J1940; J2543; J3430; J3480; J7030; J7050; J7512; P9016